=== PATIENT | female | born 1990 | race Caucasian/White ===

== ENCOUNTER 2017-12-10 19:48 | Emergency (ER) | payer OTHER, SELFPAY ==
[2017-12-10 20:25] LABS: Urine Bacteria <20 /HPF (<20); Urine RBC <5 /HPF (NONE SEEN)
[2017-12-10 20:26] LABS: Urine Culture Reflex Order NOT NEEDED
[2017-12-10 20:26] LABS: Urine Blood NEGATIVE (NEG); Urine Glucose NEGATIVE (NEG); Urine Protein NEGATIVE (NEG); Urine pH 7.5 (5.0-7.0)
[2017-12-10] MEDS ORDERED: ONDANSETRON 4 MG/2 ML VIAL ONE (20:58)
[2017-12-10] MEDS ORDERED: FENTANYL CITR 100 MCG/2 ML ONE (20:58)
[2017-12-10] MEDS ORDERED: NA CHLORIDE 0.9% 1,000 ML ONE (20:58)
[2017-12-10] MEDS ORDERED: CEFTRIAXONE/SWI 1gm 1 GM/10 ML SYR ONE (20:58)
[2017-12-10 21:16] LABS: Absolute Lymphocytes (CBC) 2.9 K/uL (0.7-4.9); Absolute Monocytes 0.8 K/uL (0.1-1.3); Absolute Neutrophil 7.7 K/uL (1.8-8.0); Basophils % 0.6 % (0-1.3); Eosinophils % 1.2 % (0-4.4); Hematocrit 38.7 % (36.0-45.0); MCH 29.6 pg (27.0-35.0)
[2017-12-10 21:23] LABS: Potassium 3.4 mEq/L (3.6-5.0)
--- NOTE | 2017-12-10 21:35 | RAD REPORT ---
EXAM DESCRIPTION: CT - Stone Protocol - 12/10/2017 9:18 pm CLINICAL HISTORY: Sharp right upper quadrant pain, nausea COMPARISON: CT May 2017 TECHNIQUE: Axial [address] imaging of the abdomen and pelvis was performed without IV contrast. No IV contrast was given because of allergy, abnormal renal function, patient refusal or physician re quest. No oral contrast given. All CT scans are performed using dose optimization technique as appropriate and may include automated exposure control or mA/KV adjustment according to patient size. FINDINGS: No suspicious findings in the lung bases. No pericardial effusion. Inferior most ribcage s hows no acute finding. The liver, spleen and pancreas show no suspicious findings on non-contrast imaging. Gallbladder and b iliary tree are also without suspicious finding. No hydronephrosis or suspicious renal mass. No significant adrenal finding. Isodense renal masses an d pyelonephritis cannot be excluded in the absence of IV contrast. The urinary bladder is without sig nificant finding. Uterus and ovaries show no suspicious findings. No dilated bowel loops or bowel wall thickening. No free air, free fluid or inflammatory stranding. N o appendicitis. Patient has a small umbilical hernia 17 mm in size. There is a minimal amount of flui d within the herniated fat that was not present in 2017. No bowel involvement. No suspicious bony findings. IMPRESSION: Small periumbilical 17 millimeter hernia is present. Size has not changed from 2016 gh there is of minimal amount of fluid or stranding within this herniated fat. No bowel involvement. Correlation is needed to determine if the patient's pain is periumbilical in location. Exam is otherwise without acute finding. Full assessment is limited is the absence of IV contrast.
[2017-12-10] MEDS ORDERED: DICYCLOMINE HCL 10 MG CAP ONE (21:46)
[2017-12-10] MEDS ORDERED: KETOROLAC 30 MG/ML INJ ONE (21:47)
--- NOTE | 2017-12-10 22:03 | ER ---
Nurse's Notes [facility] Name: Rut Christopher Age: 27 yrs Sex: Female : 1990 Arrival Date: 12/10/2017 Time: 19:49 Bed 24 Private MD: Diagnosis: Upper abdominal pain, unspecified Presentation: 12/10 20:04 Presenting complaint: Patient states: she is having sharp right upper quadrant pain bb with nausea denies vomiting or diarrhea the pain is keeping her from taking a deep breath or picking up her child. Pain started 3 days ago. Transition of care: patient was not received from another setting of care. Onset of symptoms was December 07, 2017. Risk Assessment: Do you want to hurt yourself or someone else? Patient reports no desire to harm self or others. Initial Sepsis Screen: Does the patient meet any 2 criteria? No. Patient's initial sepsis screen is negative. Does the patient have a suspected source of infection? No. Patient's initial sepsis screen is negative. Care prior to arrival: None. 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 - Social history:: Smoking status: Patient uses tobacco products, smokes one pack cigarettes per day. Patient/guardian denies using alcohol, street drugs. - Ebola Screening: : No symptoms or risks identified at this time. Screenin:14 Abuse screen: Denies threats or abuse. Nutritional screening: No deficits noted. tl2 Tuberculosis screening: No symptoms or risk factors identified. Fall Risk None identified. Assessment: 20:14 General: Appears in no apparent distress. uncomfortable, Behavior is calm, cooperative, tl2 appropriate for age. Pain: Complains of pain in right lower quadrant Pain radiates to right flank. Neuro: Level of Consciousness is awake, alert, obeys commands, Oriented to person, place, time, situation. Cardiovascular: Denies chest pain. Respiratory: Airway is patent Respiratory effort is even, unlabored, Respiratory pattern is regular, symmetrical. GI: Bowel sounds present X 4 quads. Abd is soft Abd is non tender Reports nausea. : No signs and/or symptoms were reported regarding the genitourinary system. Derm: Skin is pink, warm \T\ dry. 21:59 Reassessment: Patient appears in no apparent distress at this time. Patient and/or tl2 family updated on plan of care and expected duration. Pain level reassessed. Patient is alert, oriented x 3, equal unlabored respirations, skin warm/dry/pink. 22:20 Reassessment: Patient appears in no apparent distress at this time. Patient and/or tl2 family updated on plan of care and expected duration. Pain level reassessed. Patient is alert, oriented x 3, equal unlabored respirations, skin warm/dry/pink. Pt verbalized understanding of discharge instructions, need for follow up and prescription usage Patient states feeling better. Vital Signs: 20:06 BP 119 / 93; Pulse 105; Resp 18 S; Temp 98.6(O); Pulse Ox 99% on R/A; Weight 43.09 kg bb (R); Height 5 ft. 3 in. (160.02 cm) (R); Pain 8/10; 21:06 BP 101 / 67; Pulse 84; Resp 18; Pulse Ox 100% on R/A; tl2 21:59 BP 120 / 84; Pulse 84; Resp 18; Pulse Ox 100% ; Pain 7/10; tl2 22:20 BP 105 / 76; Pulse 84; Resp 18; Pulse Ox 100% ; Pain 4/10; tl2 20:06 Body Mass Index 16.83 (43.09 kg, 160.02 cm) ED Course: 19:49 Patient arrived in ED. am2 19:54 [facility] snw 19:54 Alexey Robbins MD is Attending Physician. snw 20:05 Triage completed. bb 20:06 Arm band placed on Patient placed in an exam room, on a stretcher, on pulse oximetry. bb 20:08 Santa Loomis, KAMALJIT is Primary Nurse. tl2 20:14 Patient has correct armband on for positive identification. Bed in low position. Call tl2 light in reach. Side rails up X 1. 20:14 Urine collected: clean catch specimen, clear. tl2 20:50 Inserted saline lock: 20 gauge in right antecubital area, using aseptic technique. tl2 Blood collected. 21:05 CBC with Diff Sent. tl2 21:05 Chem 7 Sent. tl2 21:05 Blood Culture Adult (2) Sent. tl2 21:18 CT Stone Protocol In Process Unspecified. EDMS 21:19 CT completed. Patient tolerated procedure well. Patient moved to ME via wheelchair. Patient moved back from ME. 22:20 No provider procedures requiring assistance completed. IV discontinued, intact, tl2 bleeding controlled, No redness/swelling at site. Pressure dressing applied. Administered Medications: 21:05 Drug: NS 0.9% 1000 ml Route: IV; Rate: 1 bolus; Site: right antecubital; tl2 21:52 Follow up: IV Status: Completed infusion; IV Intake: 1000ml tl2 21:06 Drug: fentaNYL (PF) 25 mcg Route: IVP; Site: right antecubital; tl2 21:52 Follow up: Response: No adverse reaction; Pain is unchanged, physician notified tl2 21:06 Drug: Rocephin - (cefTRIAXone) 1 grams Route: IVPB; Infused Over: 30 mins; Site: right tl2 antecubital; 21:53 Follow up: IV Status: Completed infusion tl2 21:06 Drug: Zofran 4 mg Route: IVP; Site: right antecubital; tl2 21:53 Follow up: Response: No adverse reaction; Nausea is decreased tl2 21:52 Drug: Bentyl 20 mg Route: PO; tl2 22:22 Follow up: Response: No adverse reaction; Pain is decreased tl2 21:52 Drug: TORadol 30 mg Route: IVP; Site: right antecubital; tl2 22:22 Follow up: Response: No adverse reaction; Pain is decreased tl2 Intake: 21:52 IV: 1000ml; Total: 1000ml. tl2 Outcome: 22:03 Discharge ordered by MD. espinal 22:20 Discharged to home ambulatory. tl2 22:20 Condition: stable 22:20 Discharge instructions given to patient, Instructed on discharge instructions, follow up and referral plans. medication usage, Demonstrated understanding of instructions, follow-up care, medications, Prescriptions given X 3. 22:22 Patient left the ED. tl2 Signatures: Dispatcher [employer] [employer] Keli Ryan, BEER COOLER-C BEER COOLER-[employer] Salvador Torres Brenda, RN RN bb Santa Loomis RN RN tl2 Cynthia Alejandra
--- NOTE | 2017-12-10 22:03 | EDPHYS ---
Physician Documentation [facility] Name: Rut Christopher Age: 27 yrs Sex: Female : 1990 Arrival Date: 12/10/2017 Time: 19:49 Bed 24 Private MD: ED Physician Alexey Robbins HPI: 12/10 21:19 This 27 yrs old Female presents to ER via Ambulatory with complaints of snw Abdominal Pain - rlq radiating to side. 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 - Social history:: Smoking status: Patient uses tobacco products, smokes one pack cigarettes per day. Patient/guardian denies using alcohol, street drugs. - Ebola Screening: : No symptoms or risks identified at this time. ROS: 21:14 Constitutional: Negative for fever, chills, and weight loss, Eyes: Negative for injury, snw pain, redness, and discharge, ENT: Negative for injury, pain, and discharge, Neck: Negative for injury, pain, and swelling, Cardiovascular: Negative for chest pain, palpitations, and edema, Respiratory: Negative for shortness of breath, cough, wheezing, and pleuritic chest pain, Back: Negative for injury and pain, : Negative for injury, bleeding, discharge, and swelling, MS/Extremity: Negative for injury and deformity, Skin: Negative for injury, rash, and discoloration, Neuro: Negative for headache, weakness, numbness, tingling, and seizure. 21:14 Abdomen/GI: Positive for abdominal pain. Exam: 21:11 Head/Face: Normocephalic, atraumatic. Eyes: Pupils equal round and reactive to light, snw extra-ocular motions intact. Lids and lashes normal. Conjunctiva and sclera are non-icteric and not injected. Cornea within normal limits. Periorbital areas with no swelling, redness, or edema. ENT: Nares patent. No nasal discharge, no septal abnormalities noted. Tympanic membranes are normal and external auditory canals are clear. Oropharynx with no redness, swelling, or masses, exudates, or evidence of obstruction, uvula midline. Mucous membranes moist. Neck: Trachea midline, no thyromegaly or masses palpated, and no cervical lymphadenopathy. Supple, full range of motion without nuchal rigidity, or vertebral point tenderness. No Meningismus. Chest/axilla: Normal chest wall appearance and motion. Nontender with no deformity. No lesions are appreciated. Cardiovascular: Regular rate and rhythm with a normal S1 and S2. No gallops, murmurs, or rubs. Normal PMI, no JVD. No pulse deficits. Respiratory: Lungs have equal breath sounds bilaterally, clear to auscultation and percussion. No rales, rhonchi or wheezes noted. No increased work of breathing, no retractions or nasal flaring. Back: No spinal tenderness. No costovertebral tenderness. Full range of motion. Skin: Warm, dry with normal turgor. Normal color with no rashes, no lesions, and no evidence of cellulitis. MS/ Extremity: Pulses equal, no cyanosis. Neurovascular intact. Full, normal range of motion. Neuro: Awake and alert, GCS 15, oriented to person, place, time, and situation. Cranial nerves II-XII grossly intact. Motor strength 5/5 in all extremities. Sensory grossly intact. Cerebellar exam normal. Normal gait. 21:11 Constitutional: The patient appears alert, anxious, frail, in obvious pain. 21:11 Abdomen/GI: Inspection: very thin, Bowel sounds: normal, Palpation: moderate abdominal tenderness, in the right upper quadrant, severe abdominal tenderness, voluntary guarding, involuntary guarding, Indicators: Bojorquez's sign is positive. Vital Signs: 20:06 BP 119 / 93; Pulse 105; Resp 18 S; Temp 98.6(O); Pulse Ox 99% on R/A; Weight 43.09 kg bb (R); Height 5 ft. 3 in. (160.02 cm) (R); Pain 8/10; 21:06 BP 101 / 67; Pulse 84; Resp 18; Pulse Ox 100% on R/A; tl2 21:59 BP 120 / 84; Pulse 84; Resp 18; Pulse Ox 100% ; Pain 7/10; tl2 22:20 BP 105 / 76; Pulse 84; Resp 18; Pulse Ox 100% ; Pain 4/10; tl2 20:06 Body Mass Index 16.83 (43.09 kg, 160.02 cm) bb MDM: 20:42 Patient medically screened. snw 22:04 Data reviewed: vital signs, nurses notes. Data interpreted: Pulse oximetry: on room air snw is 100 %. Interpretation: normal. Counseling: I had a detailed discussion with the patient and/or guardian regarding: the historical points, exam findings, and any diagnostic results supporting the discharge/admit diagnosis, the presence of at least one elevated blood pressure reading (>120/80) during this emergency department visit, lab results, radiology results, the need for outpatient follow up, to return to the emergency department if symptoms worsen or persist or if there are any questions or concerns that arise at home. Special discussion: Based on the patient's Hx, exam, and Dx evaluation, there is no indication for emergent surgery or inpatient Tx. It is understood by the patient/guardian that if the Sx's persist or worsen they need to return immediately for re-evaluation. I have referred the patient to see his PCP for further evaluation of high blood pressure. Based on the history and exam findings, there is no indication for further emergent testing or inpatient evaluation. I discussed with the patient/guardian the need to see the primary care provider for further evaluation of the symptoms. 12/10 19:54 Order name: Urine Microscopic Only; Complete Time: 20:29 snw 12/10 20:17 Order name: Urine Dipstick--Ancillary (enter results); Complete Time: 20:29 rg2 12/10 20:17 Order name: Urine --Ancillary (enter results); Complete Time: 20:29 rg2 12/10 20:44 Order name: CBC with Diff; Complete Time: 21:40 snw 12/10 20:44 Order name: Chem 7; Complete Time: 21:40 snw 12/10 20:44 Order name: Blood Culture Adult (2) snw 12/10 20:44 Order name: CT Stone Protocol; Complete Time: 21:40 snw 12/10 19:54 Order name: Urine Test (obtain specimen); Complete Time: 20:08 snw 12/10 19:54 Order name: Urine Dipstick-Ancillary (obtain specimen); Complete Time: 20:08 snw Administered Medications: 21:05 Drug: NS 0.9% 1000 ml Route: IV; Rate: 1 bolus; Site: right antecubital; tl2 21:52 Follow up: IV Status: Completed infusion; IV Intake: 1000ml tl2 21:06 Drug: fentaNYL (PF) 25 mcg Route: IVP; Site: right antecubital; tl2 21:52 Follow up: Response: No adverse reaction; Pain is unchanged, physician notified tl2 21:06 Drug: Rocephin - (cefTRIAXone) 1 grams Route: IVPB; Infused Over: 30 mins; Site: right tl2 antecubital; 21:53 Follow up: IV Status: Completed infusion tl2 21:06 Drug: Zofran 4 mg Route: IVP; Site: right antecubital; tl2 21:53 Follow up: Response: No adverse reaction; Nausea is decreased tl2 21:52 Drug: Bentyl 20 mg Route: PO; tl2 22:22 Follow up: Response: No adverse reaction; Pain is decreased tl2 21:52 Drug: TORadol 30 mg Route: IVP; Site: right antecubital; tl2 22:22 Follow up: Response: No adverse reaction; Pain is decreased tl2 Disposition: 12/11 05:55 Co-signature as Attending Physician, Alexey Robbins MD I agree with the assessment and tw4 plan of care. Disposition: 12/10/17 22:03 Discharged to Home. Impression: Upper abdominal pain, unspecified. - Condition is Stable. - Discharge Instructions: Abdominal Pain, Adult, Flank Pain, Hypertension. - Prescriptions for Bentyl 20 mg Oral Tablet - take 1 tablet by ORAL route every 6 hours As needed; 20 tablet. Zofran 4 mg Oral Tablet - take 1 tablet by ORAL route every 12 hours As needed; 6 tablet. Diclofenac Sodium 75 mg Oral Tablet Sustained Release - take 1 tablet by ORAL route 2 times per day; 30 tablet. - Work release form, Medication Reconciliation Form, Thank You Letter, Antibiotic Education, Prescription Opioid Use form. - Follow up: Private Physician; When: 2 - 3 days; Reason: Recheck today's complaints, Continuance of care, Re-evaluation by your physician. Follow up: Emergency Department; When: As needed; Reason: Worsening of condition. Signatures: Dispatcher [employer] Keli Ryan FNP-C TAILING MACHINE OPERATOR-Lauriew Madison [place], RN RN bb Santa Loomis RN RN tl2 Alexey Robbins MD MD tw4 Corrections: (The following items were deleted from the chart) 12/10 22:22 22:03 12/10/2017 22:03 Discharged to Home. Impression: Upper abdominal pain, tl2 unspecified. Condition is Stable. Forms are Medication Reconciliation Form, Thank You Letter, Antibiotic Education, Prescription Opioid Use. Follow up: Private Physician; When: 2 - 3 days; Reason: Recheck today's complaints, Continuance of care, Re-evaluation by your physician. Follow up: Emergency Department; When: As needed; Reason: Worsening of condition. snw
[2017-12-10 22:26] VITALS: TEMP 98.6
[2017-12-10 22:27] VITALS: O2SAT 100
[2017-12-10 22:30] VITALS: BP 105/76
== END 2017-12-10 22:22 | disposition home or self-care (01) ==
LOC: ER 19:48
DX: R10.11 Right upper quadrant pain (principal); F17.210 Nicotine dependence, cigarettes, uncomplicated
CPT/HCPCS: 36415; 74176; 76377; 80048; 81003; 81015; 81025; 85025; 87040; 96365; 96375; 99284; J0696; J2405; J3010; J7030

== ENCOUNTER 2020-05-05 04:03 | Emergency (ER) | payer SELFPAY ==
--- OUTSIDE RECORDS SUMMARY | 2020-05-05 04:05 | XMS REPORT | Continuity of Care Document ---
:1990 Author Organization [facility] t Address [address] [place] [address] Care Team Providers Name Role Phone Cong CARPENTER Attending Clinician Problems This patient has no known problems. Allergies, Adverse Reactions, Alerts This patient has no known allergies or adverse reactions. Medications This patient has no known medications. Procedures This patient has no known procedures. Encounters Start End Encounter Admission Attending Care Care Encounter Source Date/Time Date/Time Type Type Clinicians Facility Department ID 2019-02-14 2019-02-14 Emergency Cong [facility] [id number] 23:28:00 23:53:00 Luke Yessy [id number] [place] [id number] [place] [id number] Results This patient has no known results.
[2020-05-05] MEDS ORDERED: LIDOCAINE 1% W/EPI 1:100,000 MDV 20 ML VIAL ONE (04:32)
[2020-05-05] MEDS ORDERED: TETANUS & DIPHTHERIA TOX,ADULT 0.5 ML VIAL ONE (04:34)
[2020-05-05 04:44] LABS: Urine Blood TRACE (NEG); Urine Glucose NEGATIVE (NEG); Urine Protein NEGATIVE (NEG)
[2020-05-05] MEDS ORDERED: NEOMYCIN/BAC/POLY OPTH 3.5GM ONE (04:49)
[2020-05-05] MEDS ORDERED: CEPHALEXIN 250 MG CAP ONE (04:49)
--- NOTE | 2020-05-05 05:01 | EDPHYS ---
Physician Documentation [facility] Name: Rut Christopher Age: 29 yrs Sex: Female : 1990 Arrival Date: 05/05/2020 Time: 04:05 Bed 20 Private MD: ED Physician Matias Vega HPI: 05/05 04:16 This 29 yrs old Female presents to ER via Ambulatory with complaints of denzel Laceration To Forehead. 04:16 The patient has a laceration related to: playing, occurred at work. The laceration(s) denzel is(are) located on the forehead. Onset: The symptoms/episode began/occurred just prior to arrival. Associated signs and symptoms: The patient has no apparent associated signs or symptoms. The patient has not experienced similar symptoms in the past. 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 - Social history:: Smoking status: Patient reports the use of cigarette tobacco products, smokes one-half pack cigarettes per day. ROS: 04:17 Constitutional: Negative for fever, chills, and weight loss, Eyes: Negative for injury, denzel pain, redness, and discharge, ENT: Negative for injury, pain, and discharge, Neck: Negative for injury, pain, and swelling, Cardiovascular: Negative for chest pain, palpitations, and edema, Respiratory: Negative for shortness of breath, cough, wheezing, and pleuritic chest pain, Abdomen/GI: Negative for abdominal pain, nausea, vomiting, diarrhea, and constipation, Back: Negative for injury and pain, : Negative for injury, bleeding, discharge, and swelling, MS/Extremity: Negative for injury and deformity, Skin: Negative for injury, rash, and discoloration, Psych: Negative for depression, anxiety, suicide ideation, homicidal ideation, and hallucinations, Allergy/Immunology: Negative for hives, rash, and allergies, Endocrine: Negative for neck swelling, polydipsia, polyuria, polyphagia, and marked weight changes, Hematologic/Lymphatic: Negative for swollen nodes, abnormal bleeding, and unusual bruising. 04:17 Neuro: Positive for of the forehead. Exam: 04:17 Constitutional: This is a well developed, well nourished patient who is awake, alert, denzel and in no acute distress. Head/Face: Normocephalic, atraumatic. Eyes: Pupils equal round and reactive to light, extra-ocular motions intact. Lids and lashes normal. Conjunctiva and sclera are non-icteric and not injected. Cornea within normal limits. Periorbital areas with no swelling, redness, or edema. ENT: Nares patent. No nasal discharge, no septal abnormalities noted. Tympanic membranes are normal and external auditory canals are clear. Oropharynx with no redness, swelling, or masses, exudates, or evidence of obstruction, uvula midline. Mucous membranes moist. Neck: Trachea midline, no thyromegaly or masses palpated, and no cervical lymphadenopathy. Supple, full range of motion without nuchal rigidity, or vertebral point tenderness. No Meningismus. Chest/axilla: Normal chest wall appearance and motion. Nontender with no deformity. No lesions are appreciated. Cardiovascular: Regular rate and rhythm with a normal S1 and S2. No gallops, murmurs, or rubs. Normal PMI, no JVD. No pulse deficits. Respiratory: Lungs have equal breath sounds bilaterally, clear to auscultation and percussion. No rales, rhonchi or wheezes noted. No increased work of breathing, no retractions or nasal flaring. Abdomen/GI: Soft, non-tender, with normal bowel sounds. No distension or tympany. No guarding or rebound. No evidence of tenderness throughout. Back: No spinal tenderness. No costovertebral tenderness. Full range of motion. MS/ Extremity: Pulses equal, no cyanosis. Neurovascular intact. Full, normal range of motion. Neuro: Awake and alert, GCS 15, oriented to person, place, time, and situation. Cranial nerves II-XII grossly intact. Motor strength 5/5 in all extremities. Sensory grossly intact. Cerebellar exam normal. Normal gait. Psych: Awake, alert, with orientation to person, place and time. Behavior, mood, and affect are within normal limits. 04:17 Skin: Appearance: normal except for affected area, abscess, not appreciated, cellulitis, is not appreciated, induration, that is mild is noted. Vital Signs: 04:12 BP 116 / 88; Pulse 121; Resp 18; Temp 98.2; Pulse Ox 100% ; Weight 45.36 kg; Height 5 wh ft. 3 in. (160.02 cm); 05:11 BP 109 / 88; Pulse 91; Resp 18; Pulse Ox 99% on R/A; wh 04:12 Body Mass Index 17.71 (45.36 kg, 160.02 cm) [place] Coma Score: 04:20 Eye Response: spontaneous(4). Verbal Response: oriented(5). Motor Response: obeys [facility] commands(6). Total: 15. Laceration: 05:00 Wound Repair of 1cm ( 0.4in ) subcutaneous laceration to forehead. Linear shaped.. [facility] Distal neuro/vascular/tendon intact. Anesthesia: Local anesthetic administered with 3 mls of 1% lidocaine w/ Epi. Wound prep: Moderate cleansing by me. Subcutaneous tissue closed with 1 6-0 Vicryl using simple sutures and sterile technique. Skin closed with 2 6-0 Prolene using interrupted sutures and sterile technique. Dressed with Neosporin. Patient tolerated well. MDM: 04:20 Differential diagnosis: Laceration of Intracranial bleed- Concussion. Data reviewed: [facility] vital signs, nurses notes, radiologic studies, CT scan. Data interpreted: pvc monitor: rate is 121 beats/min, rhythm is regular. Counseling: I had a detailed discussion with the patient and/or guardian regarding: the historical points, exam findings, and any diagnostic results supporting the discharge/admit diagnosis, radiology results, the need for outpatient follow up, for definitive care, a family practitioner. 04:23 Patient medically screened. [facility] 05/05 04:39 Order name: Urine --Ancillary (enter results); Complete Time: 04:59 tt3 05/05 04:39 Order name: Urine Dipstick--Ancillary (enter results); Complete Time: 04:59 tt3 05/05 04:16 Order name: CT Head Brain wo Cont [facility] 05/05 04:16 Order name: Dressing - Wound; Complete Time: 04:22 denzel 05/05 04:16 Order name: Gloves, Sterile; Complete Time: 04:22 [facility] 05/05 04:16 Order name: Setup Suture Tray; Complete Time: 04:22 [facility] 05/05 04:21 Order name: Urine Dipstick-Ancillary (obtain specimen); Complete Time: 04:38 [facility] 05/05 04:21 Order name: Urine Test (obtain specimen); Complete Time: 04:38 [facility] 05/05 04:21 Order name: Ice pack; Complete Time: 04:38 [facility] Administered Medications: 04:23 Drug: Tetanus-Diphtheria Toxoid Adult 0.5 ml {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 Lot #: [id number]. } Route: IM; Site: left deltoid; 04:38 Follow up: Response: No adverse reaction 04:30 Drug: Lidocaine-Epinephrine -1%: (1:100,000) 5 ml {Note: Administered by MD.} Volume: 20 ml; Route: Infiltration; 04:38 Follow up: Response: No adverse reaction 04:42 Drug: KeFLEX 500 mg Route: PO; 05:12 Follow up: Response: No adverse reaction 04:42 Drug: Neosporin Ointment 1 application Route: Topical; Site: forehead; Disposition: 05/05/20 04:59 Discharged to Home. Impression: Superficial injury of head, Laceration without foreign body of other part of head - forehead, Urinary tract infection, site not specified. - Condition is Stable. - Discharge Instructions: Head Injury, Adult, Facial Laceration, Urinary Tract Infection, Adult, Urinary Tract Infection, Adult, [id number], Facial Laceration, [id number], Head Injury, Adult, [id number]. - Prescriptions for Keflex 500 mg Oral Capsule - take 1 capsule by ORAL route every 6 hours for 7 days; 28 capsule. - Medication Reconciliation Form, Thank You Letter, Antibiotic Education, Prescription Opioid Use form. - Follow up: Private Physician; When: 2 - 3 days; Reason: Recheck today's complaints, Continuance of care, Staple/Suture removal, Re-evaluation by your physician. - Problem is new. - Symptoms have improved. Signatures: Dispatcher [employer] Matias Lewis MD MD cha Habalo, Winsy Corrections: (The following items were deleted from the chart) 05:01 04:23 Wound Repair of 1cm ( 0.4in ) subcutaneous laceration to forehead. Linear denzel shaped.. Distal neuro/vascular/tendon intact. Anesthesia: Local anesthetic administered with 3 mls of 1% lidocaine w/ Epi. Wound prep: Moderate cleansing by me. Skin closed with 2 6-0 Prolene using interrupted sutures and sterile technique. Dressed with Neosporin. Patient tolerated well. [facility] 05:12 04:59 05/05/2020 04:59 Discharged to Home. Impression: Superficial injury of head; wh Laceration without foreign body of other part of head - forehead; Urinary tract infection, site not specified. Condition is Stable. Discharge Instructions: Head Injury, Adult, Facial Laceration, Facial Laceration, [id number], Head Injury, Adult, [id number]. Prescriptions for Keflex 500 mg Oral Capsule - take 1 capsule by ORAL route every 6 hours for 7 days; 28 capsule. and Forms are Medication Reconciliation Form, Thank You Letter, Antibiotic Education, Prescription Opioid Use. Follow up: Private Physician; When: 2 - 3 days; Reason: Recheck today's complaints, Continuance of care, Staple/Suture removal, Re-evaluation by your physician. Problem is new. Symptoms have improved. [facility]
--- NOTE | 2020-05-05 05:01 | ER ---
Nurse's Notes [facility] Name: Rut Christopher Age: 29 yrs Sex: Female : 1990 Arrival Date: 05/05/2020 Time: 04:05 Bed 20 Private MD: Diagnosis: Superficial injury of head;Laceration without foreign body of other part of head-forehead;Urinary tract infection, site not specified Presentation: 05/05 04:12 Chief complaint: Patient states: was accidentally hit by a golf club around midnight, wh suffered a laceration in the forehead. Also C/O nausea. Coronavirus screen: Client denies travel out of the [place] in the last 14 days. At this time, the client does not indicate any symptoms associated with coronavirus-19. Ebola Screen: Patient negative for fever greater than or equal to 101.5 degrees Fahrenheit, and additional compatible Ebola Virus Disease symptoms Patient denies exposure to infectious person. Complicating Factors: There are no complicating factors for this patient. Initial Sepsis Screen: Does the patient meet any 2 criteria? HR > 90 bpm. Does the patient have a suspected source of infection? Yes: Skin breakdown/wound. Risk Assessment: Do you want to hurt yourself or someone else? Patient reports no desire to harm self or others. Onset of symptoms was May 05, 2020. 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 - Social history:: Smoking status: Patient reports the use of cigarette tobacco products, smokes one-half pack cigarettes per day. Screenin:14 Abuse screen: Denies threats or abuse. Denies injuries from another. Nutritional screening: No deficits noted. Tuberculosis screening: No symptoms or risk factors identified. Fall Risk None identified. Assessment: 04:14 General: Appears in no apparent distress. Behavior is calm, cooperative, appropriate for age. Pain: Complains of pain in forehead. Neuro: Level of Consciousness is awake, alert, obeys commands, Oriented to person, place, time, situation, Appropriate for age. Cardiovascular: Capillary refill < 3 seconds. Respiratory: Airway is patent Respiratory effort is even, unlabored, Respiratory pattern is regular, symmetrical. GI: Abdomen is flat, non-distended. : No signs and/or symptoms were reported regarding the genitourinary system. EENT: No signs and/or symptoms were reported regarding the EENT system. Derm: Skin is intact, is healthy with good turgor, Skin is pink, warm \T\ dry. normal. Musculoskeletal: Circulation, motion, and sensation intact. Injury Description: Laceration sustained to forehead is clean, 0.5 to 2.5 cm long, was sustained 2-4 hours ago. is bleeding no active bleeding noted. 05:12 Reassessment: Patient appears in no apparent distress at this time. No changes from previously documented assessment. Patient and/or family updated on plan of care and expected duration. Pain level reassessed. Patient is alert, oriented x 3, equal unlabored respirations, skin warm/dry/pink. Vital Signs: 04:12 BP 116 / 88; Pulse 121; Resp 18; Temp 98.2; Pulse Ox 100% ; Weight 45.36 kg; Height 5 wh ft. 3 in. (160.02 cm); 05:11 BP 109 / 88; Pulse 91; Resp 18; Pulse Ox 99% on R/A; wh 04:12 Body Mass Index 17.71 (45.36 kg, 160.02 cm) [place] Coma Score: 04:20 Eye Response: spontaneous(4). Verbal Response: oriented(5). Motor Response: obeys denzel commands(6). Total: 15. ED Course: 04:05 Patient arrived in ED. ag3 04:06 Karri Arnold is Primary Nurse. 04:13 Triage completed. 04:14 Patient has correct armband on for positive identification. Bed in low position. Call light in reach. Side rails up X 1. Pulse ox on. NIBP on. 04:15 Matias Vega MD is Attending Physician. denzel 04:16 Arm band placed on right wrist. 04:30 Assist provider with laceration repair on forehead that was 2.5 cm. or less using sutures. Set up tray. Performed by Matias Vega MD Patient tolerated well. Patient did not have IV access during this emergency room visit. 05:02 CT Head Brain wo Cont In Process Unspecified. 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 Lot #: [id number]. } Route: IM; Site: left deltoid; 04:38 Follow up: Response: No adverse reaction 04:30 Drug: Lidocaine-Epinephrine -1%: (1:100,000) 5 ml {Note: Administered by MD.} Volume: 20 ml; Route: Infiltration; 04:38 Follow up: Response: No adverse reaction 04:42 Drug: KeFLEX 500 mg Route: PO; 05:12 Follow up: Response: No adverse reaction 04:42 Drug: Neosporin Ointment 1 application Route: Topical; Site: forehead; Outcome: 04:59 Discharge ordered by . denzel 05:12 Discharged to home ambulatory. 05:12 Condition: stable 05:12 Discharge instructions given to patient, Instructed on discharge instructions, follow up and referral plans. medication usage, wound care, Demonstrated understanding of instructions, follow-up care, medications, wound care, Prescriptions given X 1. 05:12 Patient left the ED. Signatures: Dispatcher [employer] Matias Lewis MD MD cha Habalo, Karri Gladis Rinaldi ag3
[2020-05-05 05:22] VITALS: TEMP 98.2
[2020-05-05 05:24] VITALS: BP 109/88; O2SAT 99
--- NOTE | 2020-05-07 12:40 | RAD REPORT ---
EXAM DESCRIPTION: CT Head Brain Wo Cont CLINICAL HISTORY: HEADACHE COMPARISON: None. TECHNIQUE: Head/brain axial images acquired without contrast. Coronal and sagittal reformats created . Exam performed according to departmental dose-optimization program which includes automated exposur e control, adjustment of mA and/or kV according to patient size, and/or use of iterative reconstructi on technique. FINDINGS: No midline shift, mass effect, intracranial hemorrhage, or hydrocephalus. Brain parenchyma unremarkable. Mastoid air cells clear. No skull fracture. Partially-imaged mild mucosal thickening of right maxillary sinus. IMPRESSION: Unremarkable CT head without contrast. Electronically signed by: Suresh Reid MD 05/05/2020 5:12 AM CDT Due to temporary technical issues with the PACS/Fluency reporting system, reports are being signed by the in house radiologist without review as a courtesy to ensure prompt reporting. The interpreting r adiologist is fully responsible for the content of the report.
== END 2020-05-05 05:12 | disposition home or self-care (01) ==
LOC: ER 04:03
PROC: 0JQ10ZZ Repair Face Subcutaneous Tissue and Fascia, Open Approach (ICD-10-PCS; principal; 2020-05-05)
DX: S01.81XA Laceration without foreign body of other part of head, initial encounter (principal); N39.0 Urinary tract infection, site not specified; F17.210 Nicotine dependence, cigarettes, uncomplicated; W22.8XXA Striking against or struck by other objects, initial encounter; Y93.89 Activity, other specified; Y92.89 Other specified places as the place of occurrence of the external cause; Y99.8 Other external cause status; Z23 Encounter for immunization; Z88.8 Allergy status to other drugs, medicaments and biological substances
CPT/HCPCS: 70450; 81003; 81025; 90471; 90714; 99284